=== PATIENT | female | born 1970 | race Caucasian/White ===

== ENCOUNTER 2016-07-15 09:58 | Emergency (ER) | payer OTHER ==
[~2016-07-15] VITALS: Ht 165.1 cm; Wt 61.0 kg
[2016-07-15 10:04] VITALS: BP 120/88; PULSE 107; RESP 16; TEMP 98.4; O2SAT 98
--- NOTE | 2016-07-15 10:20 | PD ---
HPI Chief Complaint: Respiratory Symptoms Time Seen by Provider: 10:12 Travel History International Travel<30 days: No Contact w/Intl Traveler<30days: No Traveled to known affect area: No History of Present Illness HPI This is a 46-year-old female who presents to the emergency department with 2 weeks of nasal congestion that progressed to a productive cough with white and yellow sputum, constant, moderate severity associated with generalized fatigue and malaise. She says she had a fever at the beginning of her illness but no longer has any fever. She completed a course of amoxicillin but she doesn't feel like she is getting better. She has used an inhaler before but denies any history of asthma or smoking. PFSH Past Medical History Medical History: Denies Significant Hx Diminished Hearing: No Tetanus Vaccination: Unknown ?: Not Social History Alcohol Use: No Tobacco Use: No Substance Use: No Allergies-Medications (Allergen,Severity, Reaction): Coded Allergies: No Known Allergies (Unverified , 07/15/16) Reported Meds & Prescriptions Reported Meds & Active Scripts Active No Active Prescriptions or Reported Medications Review of Systems Except as stated in HPI: all other systems reviewed are Neg Physical Exam Narrative GENERAL:Well appearing, no acute distress SKIN: Focused skin assessment warm and dry. HEAD: Atraumatic. Normocephalic. EYES: Pupils equal and round. No injection or drainage. ENT: Moist mucous membranes NECK: Trachea midline. CARDIOVASCULAR: Regular rate and rhythm. No murmur appreciated. RESPIRATORY: Clear to auscultation. Breath sounds equal bilaterally. GASTROINTESTINAL: Abdomen soft, non-tender, nondistended. MUSCULOSKELETAL: No obvious deformities. NEUROLOGICAL: Awake and alert. No obvious cranial nerve deficits. Moving all extremities. PSYCHIATRIC: Appropriate mood and affect; insight and judgment normal. Data Data Last Documented VS Vital Signs Date Time Temp Pulse Resp B/P Pulse Ox O2 Delivery O2 Flow Rate FiO2 07/15/16 10:10 16 98 Room Air 07/15/16 10:04 98.4 107 120/88 Orders Chest, Pa & Lat (07/15/16 ) MDM Medical Decision Making Medical Screen Exam Complete: Yes Emergency Medical Condition: Yes Interpretation(s) Afebrile, mild tachycardia, normotensive No hypoxia Differential Diagnosis Bronchitis, viral upper respiratory infection, sinusitis, pneumonia Narrative Course This is a 46-year-old female who presents to the emergency department with 2 weeks of productive cough and nasal congestion. She is well-appearing on exam. She has a normal oxygen saturation. Chest x-ray is negative for pneumonia. I think she would benefit from when necessary bronchodilator, codeine cough medication and azithromycin given the long nature of her symptoms. Diagnosis Primary Impression: Acute bronchitis Qualified Code: J20.9 - Acute bronchitis, unspecified organism Patient Instructions: General Instructions Additional Instructions: If you develop severe shortness of breath, chest pain, or difficulty breathing return to the emergency department. Use albuterol every 4 hours for the next 2 days. Then use as needed for wheezing. Complete your course of antibiotics. Follow up with your primary care physician in 2-3 days if your symptoms have not improved. Med/Other Pt SpecificInfo: Prescription(s) given Scripts Azithromycin 250 Mg [id number] Mg PO DIRECTED #6 TAB Ref 0 Take 2 tabs (500 mg) on day 1 then 1 tab daily x 4 days. Prov:Maria D Shin MD 07/15/16 Promethazine-Codeine Liq 6.25-10 Mg/5 Ml Syrp5 Ml PO Q6H PRN (COUGH AND/OR COLD SYMPTOMS) #100 ML Ref 0 Prov:Maria D Shin MD 07/15/16 Albuterol 8.5 GM Inh (Proair Hfa 8.5 GM Inh)90 Mcg/Act Aer2 Puff INH Q4-6H PRN ( SHORTNESS OF BREATH) #1 INHALER Ref 0 108 mcg/actuation Prov:Mraia D Shin MD 07/15/16 Disposition: 01 DISCHARGE HOME Condition: Stable Maria D Shin MD Jul 15, 2016 10:20
--- NOTE | 2016-07-15 11:19 | RADHPO ---
EXAM DATE/TIME: 07/15/2016 11:02 [facility] COMPARISON: No previous studies available for comparison. INDICATIONS : Cough and congestion for two weeks. Lower left side chest pain from coughing. MEDICAL HISTORY : None. SURGICAL HISTORY : None. ENCOUNTER: Initial ACUITY: 2 weeks PAIN SCORE: 7/10 LOCATION: Left chest FINDINGS: PA and lateral views of the chest demonstrate the lungs to be symmetrically aerated without evidence of mass, infiltrate or effusion. The cardiomediastinal contours are unremarkable. Osseous structure s are intact. CONCLUSION: No acute disease. Jake Brennan MD FACR on July 15, 2016 at 11:18 Board Certified Radiologist. This report was verified electronically.
[2016-07-15] MEDS ORDERED: ALBUAER3 INH (11:29)
[2016-07-15] MEDS ORDERED: AZIT250T3 PO (11:29)
[2016-07-15] MEDS ORDERED: PROM6.256 PO (11:29)
== END 2016-07-15 11:38 | disposition home or self-care (01) ==
LOC: PHED 09:58
DX: J20.9 Acute bronchitis, unspecified (principal)
CPT/HCPCS: 71020; 99283